=== PATIENT | male | born 1980 | race American Indian/Alaskan Native ===

== ENCOUNTER 2017-01-26 11:12 | Day surgery (SDC) | payer OTHER ==
[~2017-01-26 11:12] MED LIST: ANCEF/STERILE WATER 2 GM/20 ML IV NR
[2017-01-26] MEDS ORDERED: NACL BACTERIOSTATIC INFILTRATI ONE (11:47)
[2017-01-26] MEDS ORDERED: MARCAINE 0.25% INFILTRATI ONE ×2 (12:04→12:58)
[2017-01-26] MEDS ORDERED: XYLOCAINE MPF 2% ONE (12:46)
[2017-01-26] MEDS ORDERED: SUBLIMAZE ONE (12:46)
[2017-01-26] MEDS ORDERED: DIPRIVAN 10 MG/ML IV ONE (12:46)
[2017-01-26] MEDS ORDERED: ZEMURON IV ONE (12:46)
[2017-01-26] MEDS ORDERED: NACL 0.9% 1000 ML 1,000 ML ONE (12:51)
--- NOTE | 2017-01-26 12:51 | Anesthesia Consultation ---
Anesthesia Consult and Med Hx Date of service: 01/26/17 - Airway Anesthetic Teeth Evaluation: Good ROM Head & Neck: Adequate Mental/Hyoid Distance: Adequate Mallampati Class: Class II Intubation Access Assessment: Probably Good - Pulmonary Exam CTA: Yes - Cardiac Exam Cardiac Exam: RRR - Pre-Operative Health Status ASA Pre-Surgery Classification: ASA2 Proposed Anesthetic Plan: General - Pulmonary Hx Smoking: Yes (3 CIGARS PER DAY) Hx Sleep Apnea: No (DELIA PRE SCREEN LOW RISK) - Other Systems Hx Cancer: No
--- NOTE | 2017-01-26 12:51 | Anesthesia Day of Surgery ---
Anesthesia Day of Surgery - Day of Surgery Patient Examined: Yes Patient H&P Reviewed: Yes Patient is NPO: Yes
[2017-01-26] MEDS ORDERED: NACL 0.9% IR ONE (12:58)
[2017-01-26] MEDS ORDERED: PEPCID IV NR (13:00)
[2017-01-26] MEDS ORDERED: NACL 0.9% 1000 ML 1,000 ML IV SCH (13:00)
[2017-01-26] MEDS ORDERED: VERSED IV NR (13:00)
[2017-01-26] MEDS ORDERED: ZOFRAN ONE (14:00)
[2017-01-26] MEDS ORDERED: ROBINUL ONE (14:36)
[2017-01-26] MEDS ORDERED: NEOSTIGMINE ONE (14:36)
--- NOTE | 2017-01-26 14:48 | Post Operative Note ---
Pre-op diagnosis: Left inguinal hernia Post-op diagnosis: same Findings: Large left inguino scrotal hernia Procedure: laparoscopici cholecystectomy Anesthesia: GETA Surgeon: WINNIE LOZADA Estimated blood loss: minimal Pathology: none Disposition: PACU
--- NOTE | 2017-01-26 14:49 | Discharge Summary ---
Short Stay Discharge Plan Weight Bearing Status: Full Weight Bearing Diet: regular Wound: open to air Follow up with: PRIMARY CARE, [Primary Care Provider] - 7 Days Prescriptions: oxyCODONE /ACETAMINOPHEN [Percocet 5/325] 1 tab PO Q4HR PRN #30 tab PRN Reason: Pain , Severe (7-10) traMADol [Ultram 50 MG tab] 50 mg PO Q6HR PRN #20 tablet PRN Reason: Pain
[2017-01-26] MEDS ORDERED: DEMEROL ONE (14:52)
[2017-01-26] MEDS ORDERED: PERCOCET 5/325 PO PRN (15:00)
[2017-01-26] MEDS ORDERED: DEMEROL IV PRN (15:12)
[2017-01-26] MEDS: DILAUDID IV PRN ×3 (15:15→15:47)
[2017-01-26 17:54] VITALS: BP 126/70
--- NOTE | 2017-01-26 19:24 | Post Anesthesia Evaluation ---
- Post Anesthesia Evaluation Patient Participated: Yes Airway Patent: Yes Stable Respiratory Function: Yes Nausea/Vomiting: No Temp > 96.8F: Yes Pain Manageable: Yes Adequeate Hydration: Yes Anesthesia Complications: No Block Receding Appropriately: Not Applicable Patient on Ventilator: No
--- NOTE | 2017-01-26 19:35 | Operative Report ---
PREOPERATIVE DIAGNOSIS: Left inguinal hernia. POSTOPERATIVE DIAGNOSIS: Large left inguinal scrotal hernia. OPERATIVE PROCEDURE: Laparoscopic mesh repair of left inguinal hernia. ANESTHESIA: General endotracheal. SURGEON: Dr. Ch. SPECIMENS: None. ESTIMATED BLOOD LOSS: Minimal. COMPLICATIONS: None. INDICATIONS: A 36-year-old male patient presenting with moderately large reducible left inguinal hernia. The patient has significant pain in the groin area out of proportion to the physical examination consisting of hernia. He is brought in for laparoscopic mesh repair. FINDINGS: Large inguinoscrotal indirect hernia on the left side with omentum that is herniated into the hernial sac, but that could be easily reduced and while reducing it, a few amount of feces of serous fluid drained into the peritoneal cavity. The hernial sac was large extending for several centimeters beyond the internal ring with significant adhesions to the internal spermatic fascia and the gonadal vessels and the vas deferens. Visualized part of the bowel loops in the pelvis appeared normal. On the right side, there is no evidence of hernia. Visualized part of the liver appeared normal. DESCRIPTION OF PROCEDURE: After satisfactory induction of general endotracheal anesthesia, a Mobley catheter and SCD compression devices were placed and abdomen was prepped and draped. A supraumbilical transverse incision was made and a Veress needle was inserted in the peritoneal cavity. After adequate carbon dioxide insufflation up to 13 mmHg, an 11 mm trocar was inserted. Through this, a 10 mm 30-degree scope was placed and other 5 mm ports were placed at the lateral border of the rectus muscle. The patient was placed in head down and right side down position. The ilioinguinal block consisting of 0.25% Marcaine was given. The encounter in the herniated omentum was reduced easily. Peritoneal flaps were developed adjacent to the left-sided 5 mm trocar, which was extended medially to the urachal ligament, which was divided inferiorly. A preperitoneal space was well-developed exposing the Tima's ligament completely. Laterally, the pocket was well delineated as well. Then began the separation of the hernial sac from the gonadal vessels and the vas deferens and the internal spermatic fascia. This took a fair amount of time because of the severity of adhesions and larger hernial sac. Hemostasis was quite adequate. The separation continued proximally for several centimeters beyond the confluence of the gonadal vessels and vas deferens. Hernia was repaired with 3 inches x 5 inches Parietex mesh. The mesh was anchored to the Tima's inferiorly using ProTackers. Superior and laterally more tackers were placed. The peritoneal incision was done with more tackers. The redundant sac was pulled up and attached to the mesh and peritoneum laterally. Desufflation was done and all the trocars were removed under direct visualization. No bleeding was noted at the trocar site. Linea alba and the supraumbilical trocar site was approximated with a [id number] 0 Vicryl suture. All the incisions were closed with 4-0 Monocryl sutures. There was minimal blood loss. He tolerated the procedure well and was transferred to postanesthesia care unit in satisfactory condition. JOB# [id number]/VERN
== END 2017-01-26 17:40 | disposition home or self-care (01) ==
LOC: OR 11:12
PROVIDERS: ATTEND Surgery
DX: K40.90 Unilateral inguinal hernia, without obstruction or gangrene, not specified as recurrent (principal); F17.210 Nicotine dependence, cigarettes, uncomplicated; Z91.048 Other nonmedicinal substance allergy status
CPT/HCPCS: 49650; C1781; J0690; J1170; J2175; J2250; J2405; J2704; J2710; J3010; J7030